=== PATIENT | female | born 1970 | race Caucasian/White ===

== ENCOUNTER → 2021-05-21 | Day surgery (SDC) | payer MEDICARE ==
[~2021-05-21] MED LIST: ACCUPRIL TAB 5MG5 MG PO; ATORVASTATIN CA10 MG PO; NABUMETONE750 MG PO; OMEPRAZOLE40 MG PO; ROBAXIN 750 MG750 MG PO; TRAMADOL HCL50 MG PO; VENLAFAXINE HC150 MG PO; VITAMIN D21250 MCG PO
== END | disposition home or self-care (01) ==
LOC: OR 07:34
DX: Z12.11 Encounter for screening for malignant neoplasm of colon (principal); E78.5 Hyperlipidemia, unspecified; K21.9 Gastro-esophageal reflux disease without esophagitis; M54.5 Low back pain; G89.29 Other chronic pain; F41.9 Anxiety disorder, unspecified; F32.9 Major depressive disorder, single episode, unspecified; I11.9 Hypertensive heart disease without heart failure; Z88.8 Allergy status to other drugs, medicaments and biological substances; Z20.822 Contact with and (suspected) exposure to COVID-19; Z87.891 Personal history of nicotine dependence; E66.01 Morbid (severe) obesity due to excess calories; Z68.35 Body mass index [BMI] 35.0-35.9, adult
CPT/HCPCS: J2704; J7030; U0002